=== PATIENT | female | born 1995 | race Caucasian/White ===

== ENCOUNTER 2019-01-14 15:02 | Outpatient (REF) | payer MEDICAID, SELFPAY ==
--- NOTE | 2019-01-14 14:30 | PAPFT_PTH ---
PATIENT: Ambar Garcia LOC: [facility] U#:[id number] AGE/SX: 23/F ROOM: RE01/14/[address]: MICHAEL Tirado : 1995 BED: DIS: 01/14/2019 SPEC #: [id number] RECD: 01/14/19 17:15 STATUS: CHRISTINA SALINAS #: [id number] NANI: 01/14/19 14:[address]: Elizabeth Reich DEPT: [facility] Cytology RECD BY: Gracie Sherwood ENTERED: 01/14/19 17:16 SP TYPE: PAPFT KIANNA DR: Kimberley Zayas Tissues: 1 - CX/ENDOCX FOR PAP SMEARS Procedures: PAP THIN PREP/[facility] Screening Comments: [id number]
== END 2019-01-14 15:22 ==
LOC: LBN 15:02
PROVIDERS: PCP Internal Medicine; Visit Provider Nurse Practitioner Family
DX: Z12.4 Encounter for screening for malignant neoplasm of cervix (principal)
CPT/HCPCS: 88142

== ENCOUNTER 2020-03-09 14:33 | Outpatient (REF) | payer OTHER, MEDICAID, SELFPAY ==
--- NOTE | 2020-03-09 13:40 | PAPFT_PTH ---
PATIENT: Ambar Garcia LOC: [facility] U#:[id number] AGE/SX: 25/F ROOM: RE03/09/[address]: MICHAEL Tirado : 1995 BED: DIS: 03/09/2020 SPEC #: [id number] RECD: 03/12/20 12:35 STATUS: CHRISTINA REChristine #: [id number] NANI: 03/09/20 13:[address]: Elizabeth Reich DEPT: [facility] Cytology RECD BY: Gracie Sherwood ENTERED: 03/12/20 12:35 SP TYPE: PAPFT KIANNA DR: Kimberley Zayas Tissues: 1 - CX/ENDOCX FOR PAP SMEARS Procedures: PAP THIN PREP/[facility] Screening Comments: [id number]
[2020-03-12 15:45] LABS: Chlamydia Result Negative (Negative); GC Result Negative (Negative)
== END 2020-03-09 14:53 ==
LOC: LBN 14:33
PROVIDERS: PCP Internal Medicine; Visit Provider Nurse Practitioner Family
DX: Z11.3 Encounter for screening for infections with a predominantly sexual mode of transmission (principal); Z12.4 Encounter for screening for malignant neoplasm of cervix
CPT/HCPCS: 87491; 87591; 88142

== ENCOUNTER 2021-03-11 09:34 | Outpatient (REF) | payer OTHER, MEDICAID, SELFPAY ==
--- NOTE | 2021-03-11 09:00 | PAPFT_PTH ---
PATIENT: Ambar Garcia LOC: [facility] U#:[id number] AGE/SX: 26/F ROOM: RE03/11/[address]: MICHAEL Tirado : 1995 BED: DIS: 03/11/2021 SPEC #: [id number] RECD: 03/11/21 18:02 STATUS: CHRISTINA SALINAS #: [id number] NANI: 03/11/21 09:[address]: Elizabeth Reich DEPT: [facility] Cytology RECD BY: Gracie Sherwood ENTERED: 03/11/21 18:02 SP TYPE: PAPFT OT DR: Kimberley Zayas Tissues: 1 - CX/ENDOCX FOR PAP SMEARS Procedures: PAP THIN PREP/[facility] Screening Comments: [id number]
--- OUTSIDE RECORDS SUMMARY | 2021-03-11 09:41 | XMS_ITS | Continuity of Care Document ---
:1995 Author Organization [facility] Address [address] [place] [address] Support Name Relationship Address Phone Yennifer Zayas Primary Care Provider [address] [place] [address] Kenyetta Pretty Attending Provider [facility] Occupational Health [address] [place] [address], [address] [place] [address] Referral Referring Provider Unavailable Unavailable Allergies, Adverse Reactions, Alerts Allergen Type Severity Reaction Last Updated Verified Status promethazine Allergy Severe seizures December 07, 2019 Y Act ketty Medications No medication information available. Problem List Active Problems Medical Problem Onset Date Status Contusion of left patella Active Strain of left patellar tendon Active Inactive/Resolved Problems Medical Problem Onset Date Status Injury of knee Inactive Procedures Procedure Date Status Knee 4 vw Min LT December 01, 2019 completed Reason for Referral Referral information is unavailable. Relevant Diagnostic Tests and/or Laboratory Data No known relevant diagnostic tests, laboratory data, and/or discharge summary. Advance Directives Advance Directive Response Recorded Date/Time Do we have a copy on file here at [facility]? No F ebruary 2019 12:31pm Does patient have an Advanced Directive? No December 01, 2019 12:31pm Pt has a Living Will? No December 01, 2019 12:31pm Pt has a Power of Button Machine Operator? No December 01, 2019 12:31pm Chief Complaint and Reason for Visit Encounter Admit Date Chief Complaint Reason for Visit Departed December 07, 2019 Knee injury Contusion of lef t patella Physician/Provider Office 10:47am Strain of left patellar tendon Visit Hospital Discharge Instructions No known hospital discharge instructions. Encounters Encounter Facility Location Admit/Visit Discharge/Departure Atte nding Date Date Provider Departed [facility] December 07, 2019 December 07, 2019 11:47am Physician Sukhwinder/Zuhair Occupational [place] 10:47am Zeinab [facility] Office Visit Departed [facility] Emergency December 01, December 01, 2019 Emergency [facility] Department 2019 10:40am 1:01pm Encounter Diagnosis Onset Date Contusion of left patella Strain of left patellar tendon Functional Status Query Response Date Recorded Comment Comprehension Ability Understands Concepts December 01, 2019 11: 21am Query Response Date Recorded Comment Living Situation Home December 01, 2019 1:01pm With Family Immunizations No known immunizations. Payers Payer Name Policy Type Covered Covered Relationship Subscriber Sub scriber Id Green Party Green Party Id SELF PAY Personal Plan of Care No Known Plan of Care Information Social History Query Response Date Recorded Comment Alcohol type beer December 01, 2019 11:58am Smoking Status Never smoker December 07, 2019 11:22am alcohol intake frequency a few times a week December 01, 2019 11 :58am substance use type marijuana December 01, 2019 11:58am Query Response Start Date Stop Date Smoking Status Never smoker Vital Signs Vital Reading Result Reference Range Collection Date/ Time Height 5 ft 9 in December 07, 2019 11 :13am Weight 70.307 kg December 07, 2019 11 :13am Temperature 98.2 F 97.6 F-99.6 F December 01 0 10:59am Pulse 82 BPM 60-100 December 07, 2019 11 :13am Respiration 16 RPM 12-24 December 07, 2019 11 :13am Pulse Oximetry 98 % 95-100 December 07, 2019 11 :13am Blood Pressure Systolic 112 100-140 December 07, 2019 11:13am Blood Pressure Diastolic 60 50-85 December 11:13am Body Mass Index 22.8 December 07, 2019 11 :13am
--- OUTSIDE RECORDS SUMMARY | 2021-03-11 09:41 | XMS_ITS | Continuity of Care Document ---
:1995 Author Organization [facility] Address [address] [place] [address] Phone Care Team Providers Name Role Phone Yennifer Zayas Primary Care Provider Unavailable Allergies, Adverse Reactions, Alerts Allergen Type Severity Reaction Last Updated Verified Status promethazine Allergy Severe seizures November Active 2019 Medications No medication information available. Problems Active Problems Medical Problem Onset Date Status Injury of knee Active Procedures Procedure Date Performed Status Knee 4 vw Min LT December 01, 2019 completed Relevant Diagnostic Tests and/or Laboratory Data Diagnostic Imaging Reports Report Dictated Date/Time Dictated By Status Radiology Report December 01, 2019 Consuelo Sanchez MD comple carrol 11:49am [facility] RADIOLOG Y REPORT PATIENT NAME: EL JOHNSON [id number] DATE OF : 1995 400 ATTENDING/ER PHYSICIAN: ER/ATTENDING PHYSICIAN: Toni Watkins PA-C PRIMARY CARE PHYS: Kimberley Zayas MD ADMITTING PHYSICIAN: CONSULTING PHYSICIAN: PROCEDURE DATE: 12/01/19 REPORT STATUS: Signed DICTATING PHYSICIAN: Migue Sanchez MD, PhD REASON FOR EXAM: s/p fall 2 days ago pain over medial pat mic STUDY: Knee 4 vw Min LT COMPARISON: No FINDINGS: Slightly asymmetric subchondral scleros is is visualized in the medial femoral condyle and medial tibial plateau. No os teochondral defect or subchondral cystic changes are present. These findings may represent bone contusion. No acute fracture or dislocation is vis ualized. Normal alignment of the knee joint is m aintained. No joint effusion is noted. Several echogenic foci are visualized p rojecting over the patellar tendon and infrapatellar soft tissues and may repre sent foreign bodies. The osseous mineralization is normal. CONCLUSION: No acute displaced fracture or dislocat ion. If pain persists consider noncontrast M RI of the knee. dd: 12/01/19 1149 <Electronically signed by Consuelo king MD, PhD in OV> 12/01/19 1202 Advance Directives Advance Directive Response Recorded Date/Time Does patient have an Advanced No November 062019 12:31pm Directive? Do we have a copy on file No December 01, 2019 12:31pm here at [facility]? Pt has a Living Will? No December 01 0 12:31pm Do we have a copy on file No December 01, 2019 12:31pm here at [facility]? Pt has a Power of Poultry Dresser? No November 12:31pm Do we have a copy on file No December 01, 2019 12:31pm here at [facility]? Chief Complaint and Reason for Visit Chief Complaint LEG I/P Encounters Encounter Location(s) Arrival/Admit Date Discharge/Depart Date Provider(s) Departed [facility] December 01, December 01, 2019 [facility] Emergency Medical 2019 10:40am 1:01pm Center-Emergency Department Assessments No Assessments Information Available Functional Status Observation Response Date Recorded Living Situation Home December 01, 2019 1:01pm With Family December 01, 2019 1:01pm Goals Goals may be documented in an alternate section. Mental Status Observation Response Date Recorded Comprehension Ability Understands Concepts December 01 11:21am Medical Equipment No Medical Equipment Information available Insurance Providers Guarantor EL JOHNSON Address [address] [facility] [address] Contact Info. Home Phone: Payer Policy Id Coverage Id Subscriber's Subscriber Id Effective E xpiration Name Date Date SELF PAY Self N/A Plan of Treatment Future Tests Future scheduled test information is unavailable Pending Tests Pending diagnostic test information is unavailable Future Visits Future appointment information is unavailable Referrals to Other Providers Reason for Referral Start Provider Provider Contact Provider Address Referral Date Information Occupational Health Work Phone: [address] [facility] [address] [address] Future Procedures Future procedure information is unavailable Future Medications Future medication information is unavailable Patient Instructions Knee Pain (DC) Social History Smoking Status Status Date of Observation Never smoked tobacco (finding) December 01, 2019 11: 58am Observation Status Observation Response Date of Response alcohol intake frequency a few times a week December 01, 2019 11:58am Alcohol type beer December 01, 2019 11:58am substance use type marijuana December 01, 2019 11:58am Smoking Status Never smoker December 01, 2019 11:58am Assigned Sex Female Vital Signs Vital Reading Result Reference Range Collection Date/ Time Weight 72.57 kg December 01 10:59am Body Temperature 98.2 [degF] 97.6-99.6 December 01, 2019 10:59am Heart Rate 75 /min 60-100 December 01 10:59am Respiratory rate 16 /min 12-24 December 01, 2019 10:59am Oxygen saturation by 99 % 95-100 December [id number] Pulse oximetry 10:59am BP Systolic 128 mm[Hg] 100-140 December 01 10:59am BP Diastolic 73 mm[Hg] 50-85 December 01 10:59am Hospital Discharge Instructions Additional Instructions Knee xray is normal Follow up with occupational health Wear the immobilizer and use crutches in the meantime Ice frequently Ibuprofen or tylenol as needed for pain Return to ED with new or worsening symptoms as discussed
--- OUTSIDE RECORDS SUMMARY | 2021-03-11 09:41 | XMS_ITS | Continuity of Care Document ---
:1995 Author Organization [facility] Address [address] [place] [address] Care Team Providers Name Role Phone Chana, Yennifer Primary Care Physician Unavailable Allergies, Adverse Reactions, Alerts Allergen Type Severity Reaction Last Updated Verified Status promethazine Allergy Severe seizures December 01, 2019 Y Active Medications No medication information available. Problem List Active Problems Medical Problem Onset Date Status Injury of knee Active Procedures Procedure Date Status Knee 4 vw Min LT December 01, 2019 completed Relevant Diagnostic Tests and/or Laboratory Data No known relevant diagnostic tests, laboratory data, and/or discharge summary. Advance Directives Advance Directive Response Recorded Date/Time Do we have a copy on file here at [facility]? [place] 12:[place] Does patient have an Advanced Directive? No December 01, 2019 12:31pm Pt has a Living Will? No December 01, 2019 12:31pm Pt has a Power of Assistant Inventory Manager? No December 01, 2019 12:31pm Chief Complaint and Reason for Visit Encounter Admit Date Chief Complaint Reason for Visit Departed Emergency December 01, 2019 10:40am LEG I/P Hospital Discharge Instructions Additional Discharge Instructions Knee xray is normal Follow up with occupational health Wear the immobilizer and use crutches in the meantime Ice frequently Ibuprofen or tylenol as need ed for pain Return to ED with new or wor sening symptoms as discussed Instruction/Education Provided Knee Pain (DC) Encounters Encounter Facility Location Admit/Visit Discharge/Departure Atte nding Date Date Provider Departed [facility] Emergency December 01, December 01, 2019 Emergency [facility] Department 2019 10:40am 1:01pm Functional Status Query Response Date Recorded Comment Comprehension Ability Understands Concepts December 01, 2019 11: 21am Query Response Date Recorded Comment Living Situation Home December 01, 2019 1:01pm With Family Immunizations No known immunizations. Payers Payer Name Policy Type Covered Covered Relationship Subscriber Sub scriber Id Green Party Green Party Id SELF PAY Personal Plan of Care Instructions Knee Pain (DC) Social History Query Response Date Recorded Comment Alcohol type beer December 01, 2019 11:58am Smoking Status Never smoker December 01, 2019 11:58am alcohol intake frequency a few times a week December 01, 2019 11 :58am substance use type marijuana December 01, 2019 11:58am Query Response Start Date Stop Date Smoking Status Never smoker Vital Signs Vital Reading Result Reference Range Collection Date/ Time Height n/a Weight 72.575 kg December 01 0 10:59am Temperature 98.2 F 97.6 F-99.6 F December 01 0 10:59am Pulse 75 BPM 60-100 December 01 0 10:59am Respiration 16 RPM 12-24 December 01 0 10:59am Pulse Oximetry 99 % 95-100 December 01 0 10:59am Blood Pressure Systolic 128 100-140 December 01, 2019 10:59am Blood Pressure Diastolic 73 50-85 Februar 2019 10:59am Body Mass Index n/a
--- OUTSIDE RECORDS SUMMARY | 2021-03-11 09:41 | XMS_ITS | Continuity of Care Document ---
:1995 Author Organization [facility] Address [address] [place] [address] Support Name Relationship Address Phone Yennifer Zayas Primary Care Provider [address] [place] [address] Kenyetta Pretty Attending Provider [facility] Occupational Health [address] [place] [address], [address] [place] [address] Referral Referring Provider Unavailable Unavailable Allergies, Adverse [...] have a copy on file here at [facility]? No F ebruary 2019 12:31pm Does patient have an Advanced Directive? No December 01, 2019 12:31pm Pt has a Living Will? No December 01, 2019 12:31pm Pt has a Power of Customer Care Associate? No December 01, 2019 12:31pm Chief Complaint and Reason for Visit Encounter Admit Date Chief Complaint Reason for Visit Departed Physician/Provider December 21, 2019 11:07am EP Knee injur y Office Visit Hospital Discharge Instructions No known hospital discharge instructions. Encounters Encounter Facility Location Admit/Visit Discharge/Departure Atte nding Date Date Provider Departed [facility] December 20December 21, 2019 1:19pm Toni casillas, Physician/Pr Occupational [place] 2019 11:07am Zeinab [facility] Office Visit Departed [facility] December 07, 2019 December 07, 2019 11:47am [place], Physician/Pr Occupational [place] 10:47am Zeinab [facility] Office Visit Departed [facility] Emergency December 01, December 01, 2019 Emergency Medical Center Department 2019 10:40am 1:01pm Functional Status Query Response Date Recorded Comment Comprehension Ability Understands Concepts December 01, 2019 11: 21am Query Response Date Recorded Comment Living Situation Home December 01, 2019 1:01pm With Family Immunizations No known immunizations. Payers Payer Name Policy Type Covered Covered Relationship Subscriber Sub scriber Id Democrat Democrat Id SELF PAY Personal Plan of Care [...]
== END 2021-03-11 09:35 | disposition home or self-care (01) ==
LOC: LBN 09:34
PROVIDERS: PCP Internal Medicine; Visit Provider Nurse Practitioner Family
DX: R82.998 Other abnormal findings in urine (principal); Z12.4 Encounter for screening for malignant neoplasm of cervix
CPT/HCPCS: 88142; 87086